=== PATIENT | female | born 1950 | race American Indian/Alaskan Native ===

== ENCOUNTER 2016-08-21 13:54 | Inpatient (IN) | payer MEDICARE, OTHER ==
[2016-08-21 13:55] VITALS: BMI 26.3
--- NOTE | 2016-08-21 14:54 | C.PDOC ---
History Of Present Illness 66 y/o female presents to the ED with complains of generalized weakness and lightheadedness which onset this morning. Pt called her son to bring her to ED, BGL 61 in ED. Pt reports similar episode several days ago with BGL 30 at home, called EMS who gave her sugar, did not go to hospital. Pt denies recent change in medicine; taking Amaryl 4mg daily. Pt also reports leg swelling for the past 2 months; denies fever, cough, nausea, vomiting, diarrhea, dysuria or any other complaints. Time Seen by Provider: 08/21/16 14:54 Chief Complaint (Nursing): Dizziness/Lightheaded History Per: Patient History/Exam Limitations: no limitations Onset/Duration Of Symptoms: Hrs Current Symptoms Are (Timing): Still Present Severity: Mild Recent travel outside of the [place]: No Past Medical History Reviewed: Historical Data, Nursing Documentation, Vital Signs Vital Signs: Last Vital Signs Temp 97.4 F L 08/21/16 14:40 Pulse 59 L 08/21/16 14:40 Resp 20 08/21/16 14:40 BP 141/73 08/21/16 14:40 Pulse Ox 99 08/21/16 15:32 - Medical History PMH: Anemia, Arthritis (HANDS), CHF, Colonic Polyps, HTN Surgical History: Endoscopy Family History: States: Unknown Family Hx - Social History Hx Alcohol Use: Yes Hx Substance Use: No - Immunization History Hx Tetanus Toxoid Vaccination: Yes Hx Influenza Vaccination: No Hx Pneumococcal Vaccination: No Review Of Systems Except As Marked, All Systems Reviewed And Found Negative. Constitutional: Positive for: Weakness. Negative for: Fever Respiratory: Negative for: Cough Gastrointestinal: Negative for: Nausea, Vomiting, Diarrhea Genitourinary: Negative for: Dysuria Musculoskeletal: Positive for: Other (bilateral leg swelling) Neurological: Positive for: Other (lightheaded) Physical Exam - Physical Exam Appears: Non-toxic, No Acute Distress Skin: Warm, Dry, No Rash Head: Atraumatic, Normacephalic Nose: Normal Oral Mucosa: Moist Chest: Symmetrical Cardiovascular: Rhythm Regular, No Murmur Respiratory: Normal Breath Sounds, No Rales, No Rhonchi, No Wheezing Gastrointestinal/Abdominal: Soft, No Tenderness Extremity: Normal ROM, Other (2+ pitting edema lower extremities) Neurological/Psych: Oriented x3, Normal Motor, Normal Sensation ED Course And Treatment - Laboratory Results Result Diagrams: 08/21/16 15:15 08/21/16 15:15 O2 Sat by Pulse Oximetry: 99 (on room air) Pulse Ox Interpretation: Normal Medical Decision Making Medical Decision Making: Plan; EKG, labs, CXR, UA Disposition - Disposition Disposition: HOSPITALIZED Disposition Time: 16:54 Condition: STABLE - Clinical Impression Clinical Impression: Acute on chronic congestive heart failure, Hypoglycemia - Scribe Statement The provider has reviewed the documentation as recorded by the Breanna Paredes Provider Attestation: All medical record entries made by the Breanna were at my direction and personally dictated by me. I have reviewed the chart and agree that the record accurately reflects my personal performance of the history, physical exam, medical decision making, and the department course for this patient. I have also personally directed, reviewed, and agree with the discharge instructions and disposition.
[2016-08-21 15:20] LABS: BASO # 0.1 K/uL (0.0-0.2); EOS # 0.1 K/uL (0.0-0.7); EOS % 1.3 % (0.0-4.0); HEMATOCRIT 29.1 % (34.0-47.0); LYMPH # 0.8 K/uL (1.0-4.3); LYMPH % 15.5 % (20.0-40.0); MEAN CELL VOLUME 83.7 fL (81.0-99.0); MEAN CORPUSCULAR HEMOGLOBIN 26.4 pg (27.0-31.0); MEAN CORPUSCULAR HGB CONC 31.5 g/dL (33.0-37.0); MEAN PLATELET VOLUME 6.4 fL (7.2-11.7); MONO # 0.3 K/uL (0.0-0.8); MONO % 5.1 % (0.0-10.0); RED CELL DISTRIBUTION WIDTH 16.6 % (11.5-14.5); WHITE BLOOD COUNT 5.3 K/uL (4.8-10.8)
[2016-08-21 15:35] LABS: POTASSIUM 3.9 mmol/L (3.6-5.2)
[2016-08-21 15:37] LABS: BILIRUBIN,TOTAL 0.4 mg/dL (0.2-1.3)
[2016-08-21 15:38] LABS: ALB/GLOB RATIO 1.3 (1.0-2.1); CALCIUM 8.3 mg/dl (8.6-10.4); TOTAL PROTEIN 6.8 g/dL (6.3-8.3)
--- NOTE | 2016-08-21 16:02 | RAD ---
HISTORY: weak COMPARISON: 12/31/2015 FINDINGS: LUNGS: Lung markings are accentuated. There is no focal consolidation. PLEURA: Suspect small pleural effusions, larger on the right. No pneumothorax apparent. CARDIOVASCULAR: There is severe cardiomegaly. OSSEOUS STRUCTURES: No significant abnormalities. VISUALIZED UPPER ABDOMEN: Normal. OTHER FINDINGS: None. IMPRESSION: Findings may represent developing congestive heart failure.
[2016-08-21 17:37] LABS: RBC URINE < 1 /hpf (0-3); URINE BILIRUBIN NEGATIVE (NEGATIVE); URINE BLOOD NEGATIVE (NEGATIVE); URINE COLOR Straw (YELLOW); URINE GLUCOSE (UA) NORMAL (Normal); URINE KETONE NEGATIVE (NEGATIVE); URINE LEUKOCYTE ESTERASE NEG Leu/uL (Negative); URINE PROTEIN NEGATIVE (NEGATIVE); URINE UROBILINOGEN NORMAL mg/dL (0.2-1.0); WBC URINE 1 /hpf (0-5)
--- NOTE | 2016-08-21 19:08 | CP.PCM.HP ---
Present on Admission - Present on Admission Any Indicators Present on Admission: No Past Patient History - Past Medical History & Family History Past Medical History?: Yes - Past Social History Smoking Status: Never Smoked - CARDIAC Hx Congestive Heart Failure: Yes Hx Hypertension: Yes - PULMONARY Other/Comment: BEING TREATED FOR A COUGH WITH PREDNISONE; BETTER. - HEENT Hx Cataracts: Yes Hx Glaucoma: Yes - RENAL Other/Comment: EARLY STAGES OF KIDNEY FAILURE - ENDOCRINE/METABOLIC Hx Endocrine Disorders: Yes Hx Diabetes Mellitus Type 2: Yes - HEMATOLOGICAL/ONCOLOGICAL Hx Anemia: Yes - INTEGUMENTARY Other/Comment: H/O GANGRENE RIGHT FOOT WITH DEBRIDEMENT AFTER SOMETHING FELL ON HER FOOT. - MUSCULOSKELETAL/RHEUMATOLOGICAL Hx Arthritis: Yes (HANDS) Hx Falls: No - GASTROINTESTINAL Hx Gastrointestinal Disorders: Yes - PSYCHIATRIC Hx Substance Use: No - SURGICAL HISTORY Hx Surgeries: Yes Hx Cataract Extraction: Yes (LEFT EYE) Hx Section: Yes (X1) Hx Eye Surgery: Yes (LEFT EYE SCAR TISSUE REMOVED AND CATARACT) - ANESTHESIA Hx Anesthesia: Yes Hx Anesthesia Reactions: No Hx Malignant Hyperthermia: No Meds Allergies/Adverse Reactions: Allergies Allergy/AdvReac Type Severity Reaction Status Date / Time apple Allergy Intermediate ITCHING Verified 08/21/16 14:40 carrot Allergy Intermediate ITCHING Verified 08/21/16 14:40 peanut Allergy Intermediate ITCHING Verified 08/21/16 14:40 Results - Vital Signs Recent Vital Signs: Last Vital Signs Temp 97.4 F L 08/21/16 14:40 Pulse 64 08/21/16 18:30 Resp 21 08/21/16 18:30 BP 139/75 08/21/16 18:30 Pulse Ox 99 08/21/16 18:30 - Labs Result Diagrams: 08/21/16 15:15 08/21/16 15:15 Labs: Laboratory Results - last 24 hr 08/21/16 17:27 Urine Color Straw Urine Clarity Clear Urine pH 6.0 Ur Specific [place] 1.005 Urine Protein Negative Urine Glucose (UA) Normal Urine Ketones Negative Urine Blood Negative Urine Nitrate Negative Urine Bilirubin Negative Urine Urobilinogen Normal Ur Leukocyte Esterase Neg Urine WBC (Auto) 1 Urine RBC (Auto) < 1 Ur Squamous Epith Cells < 1 Assessment & Plan - Assessment and Plan (Free Text) Plan: fs hold amaryl check bs wthotu coverage diet as ordered lasix iv pulm cardio other med as ordered prednisone? carroll as ordered
[2016-08-21] MEDS ORDERED: Influenza Virus Vaccine 45 mcg/0.5 ml Syr IM ONE (19:09)
[2016-08-21] MEDS ORDERED: Pneumococcal 23-Valent Vaccine IM ONE (19:09)
[2016-08-21 21:58] VITALS: RESP 20
[2016-08-22] MEDS: Labetalol Hydrochloride 300 mg Tab PO SCH ×2 (09:13→18:09)
[2016-08-22] MEDS: NIFEdipine 60 mg ER Tab PO SCH (09:18)
[2016-08-22] MEDS: Pantoprazole 40 mg EC Tab PO SCH (09:20)
[2016-08-22] MEDS ORDERED: Home Med 1 UNIT (Febuxostat [Uloric] 40 MG) PO SCH (10:00)
[2016-08-22] MEDS ORDERED: Enoxaparin 30 mg Syringe SC SCH (10:00)
--- NOTE | 2016-08-22 12:13 | CARD ---
APPROVED REPORT EKG Measurement Heart [id number] <Conclusion> Normal sinus rhythm Minimal voltage criteria for LVH, may be normal variant Nonspecific T wave abnormality Abnormal ECG
--- NOTE | 2016-08-22 16:00 | CP.PCM.CON ---
Past Patient History - Past Medical History & Family History Past Medical History?: Yes - Past Social History Smoking Status: Never Smoked - CARDIAC Hx Congestive Heart Failure: Yes Hx Hypertension: Yes - PULMONARY Other/Comment: BEING TREATED FOR A COUGH WITH PREDNISONE; BETTER. - HEENT Hx Cataracts: Yes Hx Glaucoma: Yes - RENAL Other/Comment: EARLY STAGES OF KIDNEY FAILURE - ENDOCRINE/METABOLIC Hx Endocrine Disorders: Yes Hx Diabetes Mellitus Type 2: Yes - HEMATOLOGICAL/ONCOLOGICAL Hx Anemia: Yes - INTEGUMENTARY Other/Comment: H/O GANGRENE RIGHT FOOT WITH DEBRIDEMENT AFTER SOMETHING FELL ON HER FOOT. - MUSCULOSKELETAL/RHEUMATOLOGICAL Hx Arthritis: Yes (HANDS) Hx Falls: No - GASTROINTESTINAL Hx Gastrointestinal Disorders: Yes - PSYCHIATRIC Hx Substance Use: No - SURGICAL HISTORY Hx Surgeries: Yes Hx Cataract Extraction: Yes (LEFT EYE) Hx Section: Yes (X1) Hx Eye Surgery: Yes (LEFT EYE SCAR TISSUE REMOVED AND CATARACT) - ANESTHESIA Hx Anesthesia: Yes Hx Anesthesia Reactions: No Hx Malignant Hyperthermia: No Meds Allergies/Adverse Reactions: Allergies Allergy/AdvReac Type Severity Reaction Status Date / Time apple Allergy Intermediate ITCHING Verified 08/21/16 14:40 carrot Allergy Intermediate ITCHING Verified 08/21/16 14:40 peanut Allergy Intermediate ITCHING Verified 08/21/16 14:40 - Medications Medications: Current Medications Calcitriol (Rocaltrol) 0.5 mcg PO DAILY [facility] Last Admin: 08/22/16 09:21 Dose: 0.5 mcg Dorzolamide HCl (Trusopt) 0 ml OU BID [facility] Enoxaparin Sodium (Lovenox) 30 mg SC Q12 [facility] Last Admin: 08/22/16 09:20 Dose: 30 mg Furosemide (Lasix) 40 mg IVP DAILY [facility] Last Admin: 08/22/16 09:20 Dose: 40 mg Hydralazine HCl (Apresoline) 100 mg PO BID [facility] Last Admin: 08/22/16 09:14 Dose: 100 mg Isosorbide Mononitrate (Imdur) 60 mg PO DAILY [facility] Last Admin: 08/22/16 09:19 Dose: 60 mg Labetalol HCl (Normodyne) 300 mg PO BID [facility] Last Admin: 08/22/16 09:13 Dose: 300 mg Losartan Potassium (Cozaar) 50 mg PO DAILY [facility] Last Admin: 08/22/16 09:25 Dose: Not Given Nifedipine (Procardia Xl) 60 mg PO DAILY [facility] Last Admin: 08/22/16 09:18 Dose: 60 mg Pantoprazole Sodium (Protonix Ec Tab) 40 mg PO DAILY [facility] Last Admin: 08/22/16 09:20 Dose: 40 mg Prednisone (Prednisone Tab) 20 mg PO DAILY [facility] Last Admin: 08/22/16 09:22 Dose: Not Given Results - Vital Signs Recent Vital Signs: Last Vital Signs Temp 98.5 F 08/22/16 08:06 Pulse 64 08/22/16 08:44 Resp 20 08/22/16 08:06 BP 153/70 H 08/22/16 09:20 Pulse Ox 97 08/22/16 08:06 - Labs Result Diagrams: 08/21/16 15:15 08/21/16 15:15 Labs: Laboratory Results - last 24 hr 08/21/16 08/21/16 08/22/16 17:27 21:47 02:18 POC Glucose (mg/dL) 107 48 L Urine Color Straw Urine Clarity Clear Urine pH 6.0 Ur Specific [place] 1.005 Urine Protein Negative Urine Glucose (UA) Normal Urine Ketones Negative Urine Blood Negative Urine Nitrate Negative Urine Bilirubin Negative Urine Urobilinogen Normal Ur Leukocyte Esterase Neg Urine WBC (Auto) 1 Urine RBC (Auto) < 1 Ur Squamous Epith Cells < 1 08/22/16 08/22/16 08/22/16 02:40 06:23 11:06 POC Glucose (mg/dL) 72 77 86 Urine Color Urine Clarity Urine pH Ur Specific [place] Urine Protein Urine Glucose (UA) Urine Ketones Urine Blood Urine Nitrate Urine Bilirubin Urine Urobilinogen Ur Leukocyte Esterase Urine WBC (Auto) Urine RBC (Auto) Ur Squamous Epith Cells
[2016-08-22] MEDS: Dorzolamide 2% Opht Sol 10ml OU SCH (18:09)
--- NOTE | 2016-08-22 18:20 | CP.PCM.PN ---
Subjective - Date & Time of Evaluation Date of Evaluation: 08/22/16 Time of Evaluation: 02:00 - Subjective Subjective: clinically same Objective - Vital Signs/Intake and Output Vital Signs (last 24 hours): Temp Pulse Resp BP Pulse Ox 98.0 F 57 L 20 148/74 97 08/22/16 16:35 08/22/16 16:35 08/22/16 16:35 08/22/16 16:35 08/22/16 16:35 Intake and Output: 08/22/16 08/22/16 06:59 18:59 Intake Total 500 Balance 500 - Medications Medications: Current Medications Calcitriol (Rocaltrol) 0.5 mcg PO DAILY [facility] Last Admin: 08/22/16 09:21 Dose: 0.5 mcg Dorzolamide HCl (Trusopt) 0 ml OU BID [facility] Enoxaparin Sodium (Lovenox) 30 mg SC DAILY [facility] Furosemide (Lasix) 40 mg IVP DAILY [facility] Last Admin: 08/22/16 09:20 Dose: 40 mg Hydralazine HCl (Apresoline) 100 mg PO BID [facility] Last Admin: 08/22/16 09:14 Dose: 100 mg Isosorbide Mononitrate (Imdur) 60 mg PO DAILY [facility] Last Admin: 08/22/16 09:19 Dose: 60 mg Labetalol HCl (Normodyne) 300 mg PO BID [facility] Last Admin: 08/22/16 09:13 Dose: 300 mg Losartan Potassium (Cozaar) 50 mg PO DAILY [facility] Last Admin: 08/22/16 09:25 Dose: Not Given Nifedipine (Procardia Xl) 60 mg PO DAILY [facility] Last Admin: 08/22/16 09:18 Dose: 60 mg Pantoprazole Sodium (Protonix Ec Tab) 40 mg PO DAILY [facility] Last Admin: 08/22/16 09:20 Dose: 40 mg Prednisone (Prednisone Tab) 20 mg PO DAILY [facility] Last Admin: 08/22/16 09:22 Dose: Not Given - Constitutional Appears: Well - Head Exam Head Exam: ATRAUMATIC, NORMAL INSPECTION, NORMOCEPHALIC - Eye Exam Eye Exam: EOMI, Normal appearance, PERRL Pupil Exam: NORMAL ACCOMODATION, PERRL - ENT Exam ENT Exam: Mucous Membranes Moist, Normal Exam - Neck Exam Neck Exam: Full ROM, Normal Inspection. absent: Lymphadenopathy - Respiratory Exam Respiratory Exam: Decreased Breath Sounds - Cardiovascular Exam Cardiovascular Exam: REGULAR RHYTHM, +S1, +S2 - GI/Abdominal Exam GI & Abdominal Exam: Soft, Diminished Bowel Sounds - Rectal Exam Rectal Exam: Deferred
--- NOTE | 2016-08-22 22:10 | CP.PCM.CON ---
History of Present Illness - History of Present Illness History of Present Illness: Dyspnea and pedal edema History Of Present Illness 66 y/o female presents to the ED with complains of generalized weakness and lightheadedness which onset this morning. Pt called her son to bring her to ED, BGL 61 in ED. Pt reports similar episode several days ago with BGL 30 at home, called EMS who gave her sugar, did not go to hospital. Pt denies recent change in medicine; taking Amaryl 4mg daily. Pt also reports leg swelling for the past 2 months; denies fever, cough, nausea, vomiting, diarrhea, dysuria or any other complaints. Chief Complaint (Nursing): Dizziness/Lightheaded History Per: Patient History/Exam Limitations: no limitations Onset/Duration Of Symptoms: Hrs Current Symptoms Are (Timing): Still Present Severity: Mild Recent travel outside of the [place]: No - Medical History PMH: Anemia, Arthritis (HANDS), CHF, Colonic Polyps, HTN Surgical History: Endoscopy Family History: States: Unknown Family Hx - Social History Hx Alcohol Use: Yes Hx Substance Use: No - Immunization History Hx Tetanus Toxoid Vaccination: Yes Hx Influenza Vaccination: No Hx Pneumococcal Vaccination: No Review Of Systems Except As Marked, All Systems Reviewed And Found Negative. Constitutional: Positive for: Weakness. Negative for: Fever Respiratory: Negative for: Cough Gastrointestinal: Negative for: Nausea, Vomiting, Diarrhea Genitourinary: Negative for: Dysuria Musculoskeletal: Positive for: Other (bilateral leg swelling) Neurological: Positive for: Other (lightheaded) Physical Exam - Physical Exam Appears: Non-toxic, No Acute Distress Skin: Warm, Dry, No Rash Head: Atraumatic, Normacephalic Nose: Normal Oral Mucosa: Moist Chest: Symmetrical Cardiovascular: Rhythm Regular, No Murmur Respiratory: Normal Breath Sounds, No Rales, No Rhonchi, No Wheezing Gastrointestinal/Abdominal: Soft, No Tenderness Extremity: Normal ROM, Other (2+ pitting edema lower extremities) Neurological/Psych: Oriented x3, Normal Motor, Normal Sensation Past Patient History - Past Medical History & Family History Past Medical History?: Yes - Past Social History Smoking Status: Never Smoked - CARDIAC Hx Congestive Heart Failure: Yes Hx Hypertension: Yes - PULMONARY Other/Comment: BEING TREATED FOR A COUGH WITH PREDNISONE; BETTER. - HEENT Hx Cataracts: Yes Hx Glaucoma: Yes - RENAL Other/Comment: EARLY STAGES OF KIDNEY FAILURE - ENDOCRINE/METABOLIC Hx Endocrine Disorders: Yes Hx Diabetes Mellitus Type 2: Yes - HEMATOLOGICAL/ONCOLOGICAL Hx Anemia: Yes - INTEGUMENTARY Other/Comment: H/O GANGRENE RIGHT FOOT WITH DEBRIDEMENT AFTER SOMETHING FELL ON HER FOOT. - MUSCULOSKELETAL/RHEUMATOLOGICAL Hx Arthritis: Yes (HANDS) Hx Falls: No - GASTROINTESTINAL Hx Gastrointestinal Disorders: Yes - PSYCHIATRIC Hx Substance Use: No - SURGICAL HISTORY Hx Surgeries: Yes Hx Cataract Extraction: Yes (LEFT EYE) Hx Section: Yes (X1) Hx Eye Surgery: Yes (LEFT EYE SCAR TISSUE REMOVED AND CATARACT) - ANESTHESIA Hx Anesthesia: Yes Hx Anesthesia Reactions: No Hx Malignant Hyperthermia: No Meds Allergies/Adverse Reactions: Allergies Allergy/AdvReac Type Severity Reaction Status Date / Time apple Allergy Intermediate ITCHING Verified 08/21/16 14:40 carrot Allergy Intermediate ITCHING Verified 08/21/16 14:40 peanut Allergy Intermediate ITCHING Verified 08/21/16 14:40 - Medications Medications: Current Medications Calcitriol (Rocaltrol) 0.5 mcg PO DAILY [facility] Last Admin: 08/22/16 09:21 Dose: 0.5 mcg Dorzolamide HCl (Trusopt) 0 ml OU BID [facility] Last Admin: 08/22/16 18:09 Dose: 1 drop Enoxaparin Sodium (Lovenox) 30 mg SC DAILY [facility] Furosemide (Lasix) 40 mg IVP DAILY [facility] Last Admin: 08/22/16 09:20 Dose: 40 mg Hydralazine HCl (Apresoline) 100 mg PO BID [facility] Last Admin: 08/22/16 18:08 Dose: 100 mg Isosorbide Mononitrate (Imdur) 60 mg PO DAILY [facility] Last Admin: 08/22/16 09:19 Dose: 60 mg Labetalol HCl (Normodyne) 300 mg PO BID [facility] Last Admin: 08/22/16 18:09 Dose: 300 mg Losartan Potassium (Cozaar) 50 mg PO DAILY [facility] Last Admin: 08/22/16 09:25 Dose: Not Given Nifedipine (Procardia Xl) 60 mg PO DAILY [facility] Last Admin: 08/22/16 09:18 Dose: 60 mg Pantoprazole Sodium (Protonix Ec Tab) 40 mg PO DAILY [facility] Last Admin: 08/22/16 09:20 Dose: 40 mg Prednisone (Prednisone Tab) 20 mg PO DAILY [facility] Last Admin: 08/22/16 09:22 Dose: Not Given Results - Vital Signs Recent Vital Signs: Last Vital Signs Temp 98.0 F 08/22/16 16:35 Pulse 59 L 08/22/16 17:30 Resp 20 08/22/16 16:35 BP 148/74 08/22/16 16:35 Pulse Ox 97 08/22/16 16:35 - Labs Result Diagrams: 08/21/16 15:15 08/21/16 15:15 Labs: Laboratory Results - last 24 hr 08/22/16 08/22/16 08/22/16 02:18 02:40 06:23 POC Glucose (mg/dL) 48 L 72 77 08/22/16 08/22/16 08/22/16 11:06 17:12 17:29 POC Glucose (mg/dL) 86 33 L* 56 L 08/22/16 08/22/16 18:04 21:19 POC Glucose (mg/dL) 84 94 Assessment & Plan - Assessment and Plan (Free Text) Assessment: 66 F with Hx of DM, HTN, CKD admitted for hypoglycemia and dyspnea Check ECHO Will suma
[2016-08-23 07:45] LABS: POTASSIUM 4.3 mmol/L (3.6-5.2)
[2016-08-23 07:48] LABS: CALCIUM 8.4 mg/dl (8.6-10.4)
[2016-08-23 09:37] VITALS: PULSE 60
[2016-08-23] MEDS: Labetalol Hydrochloride 300 mg Tab PO SCH (09:40)
[2016-08-23] MEDS: Dorzolamide 2% Opht Sol 10ml OU SCH (09:41)
[2016-08-23] MEDS: Pantoprazole 40 mg EC Tab PO SCH (09:41)
[2016-08-23] MEDS: NIFEdipine 60 mg ER Tab PO SCH (09:44)
[2016-08-23] MEDS ORDERED: Enoxaparin 30 mg Syringe SC SCH (10:00)
--- NOTE | 2016-08-23 13:13 | CP.PCM.PN ---
Subjective - Date & Time of Evaluation Date of Evaluation: 08/23/16 Time of Evaluation: 01:00 - Subjective Subjective: clinically same Objective - Vital Signs/Intake and Output Vital Signs (last 24 hours): Temp Pulse Resp BP Pulse Ox 99.1 F 60 20 146/74 97 08/23/16 08:33 08/23/16 09:36 08/23/16 08:33 08/23/16 09:41 08/23/16 08:33 Intake and Output: 08/23/16 08/23/16 06:59 18:59 Intake Total 200 Balance 200 - Medications Medications: Current Medications Calcitriol (Rocaltrol) 0.5 mcg PO DAILY [facility] Last Admin: 08/23/16 09:41 Dose: 0.5 mcg Dorzolamide HCl (Trusopt) 0 ml OU BID [facility] Last Admin: 08/23/16 09:41 Dose: 1 drop Enoxaparin Sodium (Lovenox) 30 mg SC DAILY [facility] Last Admin: 08/23/16 09:41 Dose: 30 mg Furosemide (Lasix) 40 mg IVP DAILY [facility] Last Admin: 08/23/16 09:41 Dose: 40 mg Hydralazine HCl (Apresoline) 100 mg PO BID [facility] Last Admin: 08/23/16 09:40 Dose: 100 mg Isosorbide Mononitrate (Imdur) 60 mg PO DAILY [facility] Last Admin: 08/23/16 09:40 Dose: 60 mg Labetalol HCl (Normodyne) 300 mg PO BID [facility] Last Admin: 08/23/16 09:40 Dose: 300 mg Losartan Potassium (Cozaar) 50 mg PO DAILY [facility] Last Admin: 08/23/16 10:01 Dose: Not Given Nifedipine (Procardia Xl) 60 mg PO DAILY [facility] Last Admin: 08/23/16 09:44 Dose: 60 mg Pantoprazole Sodium (Protonix Ec Tab) 40 mg PO DAILY [facility] Last Admin: 08/23/16 09:41 Dose: 40 mg Prednisone (Prednisone Tab) 20 mg PO DAILY [facility] Last Admin: 08/23/16 10:01 Dose: Not Given - Labs Labs: 08/23/16 07:11 - Constitutional Appears: Well - Head Exam Head Exam: ATRAUMATIC, NORMAL INSPECTION, NORMOCEPHALIC - Eye Exam Eye Exam: EOMI, Normal appearance, PERRL Pupil Exam: NORMAL ACCOMODATION, PERRL - ENT Exam ENT Exam: Mucous Membranes Moist, Normal Exam - Neck Exam Neck Exam: Full ROM, Normal Inspection. absent: Lymphadenopathy - Respiratory Exam Respiratory Exam: Decreased Breath Sounds - Cardiovascular Exam Cardiovascular Exam: REGULAR RHYTHM, +S1, +S2 - GI/Abdominal Exam GI & Abdominal Exam: Soft, Diminished Bowel Sounds - Rectal Exam Rectal Exam: Deferred
--- NOTE | 2016-08-23 14:57 | CP.PCM.PN ---
Subjective - Date & Time of Evaluation Date of Evaluation: 08/23/16 Time of Evaluation: 11:00 - Subjective Subjective: Alert, orientedx3, no sob or chest pains. Objective - Vital Signs/Intake and Output Vital Signs (last 24 hours): Temp Pulse Resp BP Pulse Ox 99.1 F 60 20 146/74 97 08/23/16 08:33 08/23/16 09:36 08/23/16 08:33 08/23/16 09:41 08/23/16 08:33 Intake and Output: 08/23/16 08/23/16 06:59 18:59 Intake Total 200 Balance 200 - Medications Medications: Current Medications Calcitriol (Rocaltrol) 0.5 mcg PO DAILY [facility] Last Admin: 08/23/16 09:41 Dose: 0.5 mcg Dorzolamide HCl (Trusopt) 0 ml OU BID [facility] Last Admin: 08/23/16 09:41 Dose: 1 drop Enoxaparin Sodium (Lovenox) 30 mg SC DAILY [facility] Last Admin: 08/23/16 09:41 Dose: 30 mg Furosemide (Lasix) 40 mg IVP DAILY [facility] Last Admin: 08/23/16 09:41 Dose: 40 mg Hydralazine HCl (Apresoline) 100 mg PO BID [facility] Last Admin: 08/23/16 09:40 Dose: 100 mg Isosorbide Mononitrate (Imdur) 60 mg PO DAILY [facility] Last Admin: 08/23/16 09:40 Dose: 60 mg Labetalol HCl (Normodyne) 300 mg PO BID [facility] Last Admin: 08/23/16 09:40 Dose: 300 mg Losartan Potassium (Cozaar) 50 mg PO DAILY [facility] Last Admin: 08/23/16 10:01 Dose: Not Given Nifedipine (Procardia Xl) 60 mg PO DAILY [facility] Last Admin: 08/23/16 09:44 Dose: 60 mg Pantoprazole Sodium (Protonix Ec Tab) 40 mg PO DAILY [facility] Last Admin: 08/23/16 09:41 Dose: 40 mg Prednisone (Prednisone Tab) 20 mg PO DAILY [facility] Last Admin: 08/23/16 10:01 Dose: Not Given - Labs Labs: 08/23/16 07:11 Assessment and Plan - Assessment and Plan (Free Text) Assessment: Patient is seen and examined. Alert, oriented, NAD. Still with some leg edema. D /W DR Korin Bernabe, discharge home plan for today. Advised to follow up with the PMD in 1 week to f/u on chronic renal insufficiency.
--- NOTE | 2016-08-23 15:05 | PCM.HF ---
Heart Failure Core Measure - Heart Failure Ejection Fraction: 40 % or Greater (ef 68%) DILLON Inhibitor Prescribed: No Contraindication/Reason for not providing: CKD Beta-Jeff Prescribed: None Contraindication/Reason for not providing: adelso Angiotensin II Receptor Jeff Prescribed: Yes AnticoagulationTherapy for Atrial Fibrillation/Atrialflutter: No Contraindication/Reason for not providing: no afib Aldosterone Antagonist Prescribed: No Contraindication/Reason for not providing: renal dysfunction Hydralazine Nitrate Prescribed: Yes Implantable Cardioverter Defibrillator Therapy: No Contraindication/Reason for not providing: EF>40% Cardiac Resynchronization Therapy Prescribed: No Contraindication/Reason for not providing: not indicated - Follow up Will be discharged to: Home Follow Up Date (must be within 7 days from discharge): 08/27/16 Follow Up Time: 09:00
--- NOTE | 2016-08-23 15:51 | CARD ---
APPROVED REPORT EXAM: Two-dimensional and M-mode echocardiogram with Doppler and color Doppler. Other Information Quality : GoodRhythm : NSR INDICATION Congestive Heart Failure RISK FACTORS Hypertension Hyperlipidemia M-Mode DIMENSIONS RVDd1.87 (2.1-3.2cm)Left Atrium (MM)4.69 (2.5-4.0cm) IVSd1.13 (0.7-1.1cm)Aortic Root3.12 (2.2-3.7cm) LVDd4.76 (4.0-5.6cm)Aortic Cusp Exc.1.37 (1.5-2.0cm) PWd1.37 (0.7-1.1cm)FS (%) 38 % LVDs2.97 (2.0-3.8cm)LVEF (%)68 (>50%) Aortic Valve AoV Peak Zfdgibui310.1cm/Purvi Peak GR.16mmHg Mitral Valve MV E Bomnonfu590.7cm/sMV A Thnucvay17.2cm/sE/A ratio1.7 TDI E/Lateral E'0.0E/Medial E'0.0 Tricuspid Valve TR Peak [id number]/sTR Peak Gr.[id number] LEFT VENTRICLE The left ventricle is normal size. There is borderline concentric left ventricular hypertrophy. Left ventricle systolic function is normal. The Ejection Fraction is 65-70%. There is normal LV segmental wall motion. The left ventricular diastolic function is normal. There is no ventricular septal defect visualized. RIGHT VENTRICLE The right ventricle is mildly dilated. The right ventricular systolic function is normal. ATRIA The left atrium is mildly dilated. The right atrium is mildly dilated. AORTIC VALVE The aortic valve is mildly sclerotic. The aortic valve is tri-cuspid. There is trace aortic regurgitation. There is no aortic valvular stenosis. MITRAL VALVE Mitral annular calcification is mild. There is no evidence of mitral valve prolapse. Mitral regurgitation is trace. TRICUSPID VALVE The tricuspid valve is normal in structure. There is moderate tricuspid regurgitation. Right ventricular systolic pressure is estimated at 50-60 mmHg. There is moderate-severe pulmonary hypertension. PULMONIC VALVE The pulmonic valve is not well visualized. There is trace pulmonic valvular regurgitation. GREAT VESSELS The IVC is dilated. PERICARDIAL EFFUSION There is no pericardial effusion. <Conclusion> There is borderline concentric left ventricular hypertrophy. Left ventricle systolic function is normal. The Ejection Fraction is 65-70%. The left ventricular diastolic function is normal. The right ventricle is mildly dilated. There is trace aortic regurgitation. There is moderate-severe pulmonary hypertension.
[2016-08-23 19:19] VITALS: BP 140/70; TEMP 98; O2SAT 98
== END 2016-08-23 16:25 | disposition home or self-care (01) | DRG 293 ==
LOC: C.ER 13:54 → C.9E 16:55 → C.6T 22:50
PROVIDERS: ADMIT Internal Medicine Nephrology; ATTEND Internal Medicine Nephrology
DX: I13.0 Hypertensive heart and chronic kidney disease with heart failure and stage 1 through stage 4 chronic kidney disease, or unspecified chronic kidney disease (principal); E11.22 Type 2 diabetes mellitus with diabetic chronic kidney disease; E11.649 Type 2 diabetes mellitus with hypoglycemia without coma; I50.9 Heart failure, unspecified; N18.9 Chronic kidney disease, unspecified; D64.9 Anemia, unspecified; M19.042 Primary osteoarthritis, left hand; M19.041 Primary osteoarthritis, right hand; H40.9 Unspecified glaucoma; R05 Cough; Z86.010 Personal history of colon polyps; Z98.42 Cataract extraction status, left eye; Z91.010 Allergy to peanuts; Z91.018 Allergy to other foods